=== PATIENT | female | born 1950 | race African-American/Black ===

== ENCOUNTER 2021-03-08 08:24 | Outpatient (REF) | payer MEDICARE, SELFPAY ==
--- NOTE | ~2021-03-08 | XR_ITS ---
EXAMINATION: XR KNEE, RIGHT XR KNEE, LEFT XR KNEE STANDING, BILATERAL CLINICAL INFORMATION: Right knee COMPARISON: Right and left knee radiographs from 03/24/2019 TECHNIQUE: 3 views of each knee FINDINGS: RIGHT: No acute visible fracture or dislocation. Moderate multicompartment degenerative changes. Moderate to severe narrowing of the medial femorotibial compartments and moderate to severe narrowing of the lateral patellofemoral compartment. Spurring of the tibial spines. Periarticular osteophytes along the tibial plateau, distal femoral condyles, and superior inferior margin of the patella. Enthesopathy at the quadriceps insertion site. Joint spaces and alignment are otherwise maintained. Trace joint effusion. Soft tissues are unremarkable. LEFT: No acute visible fracture or dislocation. Moderate multicompartment degenerative changes. Moderate to severe narrowing of the medial femorotibial compartments and mild to moderate narrowing of the medial patellofemoral compartment. Periarticular osteophytes along the tibial plateau, femoral condyles, and superior and inferior margins of the patella. Very slight enthesopathy at the quadriceps insertion site. Joint spaces and alignment are otherwise maintained. Joint effusion. Soft tissues are unremarkable. XR/XR knee RT 2V IMPRESSION: 1. No acute visible fracture or dislocation. 2. Moderate bilateral multicompartment degenerative changes.
--- NOTE | ~2021-03-08 | XR_ITS ---
EXAMINATION: XR KNEE, RIGHT XR KNEE, LEFT XR KNEE STANDING, BILATERAL CLINICAL INFORMATION: Right knee COMPARISON: Right and left knee radiographs from 03/24/2019 TECHNIQUE: 3 views of each knee FINDINGS: RIGHT: No acute visible fracture or dislocation. Moderate multicompartment degenerative changes. Moderate to severe narrowing of the medial femorotibial compartments and moderate to severe narrowing of the lateral patellofemoral compartment. Spurring of the tibial spines. Periarticular osteophytes along the tibial plateau, distal femoral condyles, and superior inferior margin of the patella. Enthesopathy at the quadriceps insertion site. Joint spaces and alignment are otherwise maintained. Trace joint effusion. Soft tissues are unremarkable. LEFT: No acute visible fracture or dislocation. Moderate multicompartment degenerative changes. Moderate to severe narrowing of the medial femorotibial compartments and mild to moderate narrowing of the medial patellofemoral compartment. Periarticular osteophytes along the tibial plateau, femoral condyles, and superior and inferior margins of the patella. Very slight enthesopathy at the quadriceps insertion site. Joint spaces and alignment are otherwise maintained. Joint effusion. Soft tissues are unremarkable. XR/XR knee LT 2V IMPRESSION: 1. No acute visible fracture or dislocation. 2. Moderate bilateral multicompartment degenerative changes.
--- NOTE | ~2021-03-08 | XR_ITS ---
EXAMINATION: XR KNEE, RIGHT XR KNEE, LEFT XR KNEE STANDING, BILATERAL CLINICAL INFORMATION: Right knee COMPARISON: Right and left knee radiographs from 03/24/2019 TECHNIQUE: 3 views of each knee FINDINGS: RIGHT: No acute visible fracture or dislocation. Moderate multicompartment degenerative changes. Moderate to severe narrowing of the medial femorotibial compartments and moderate to severe narrowing of the lateral patellofemoral compartment. Spurring of the tibial spines. Periarticular osteophytes along the tibial plateau, distal femoral condyles, and superior inferior margin of the patella. Enthesopathy at the quadriceps insertion site. Joint spaces and alignment are otherwise maintained. Trace joint effusion. Soft tissues are unremarkable. LEFT: No acute visible fracture or dislocation. Moderate multicompartment degenerative changes. Moderate to severe narrowing of the medial femorotibial compartments and mild to moderate narrowing of the medial patellofemoral compartment. Periarticular osteophytes along the tibial plateau, femoral condyles, and superior and inferior margins of the patella. Very slight enthesopathy at the quadriceps insertion site. Joint spaces and alignment are otherwise maintained. Joint effusion. Soft tissues are unremarkable. XR/XR knee standing BI IMPRESSION: 1. No acute visible fracture or dislocation. 2. Moderate bilateral multicompartment degenerative changes.
== END 2021-03-08 08:25 | disposition home or self-care (01) ==
LOC: HO.HOSX 08:24
PROVIDERS: Visit Provider Orthopaedic Surgery
DX: M25.561 Pain in right knee (principal); M25.562 Pain in left knee; M17.0 Bilateral primary osteoarthritis of knee; I82.90 Acute embolism and thrombosis of unspecified vein; E11.9 Type 2 diabetes mellitus without complications; E78.00 Pure hypercholesterolemia, unspecified; I10 Essential (primary) hypertension; Z88.1 Allergy status to other antibiotic agents
CPT/HCPCS: 20610; 73560; 73565; 99202; J1040

== ENCOUNTER → 2021-03-29 11:50 | Outpatient (BNVA) | payer MEDICARE, SELFPAY | PROVIDERS: Visit Provider Orthopaedic Surgery | DX: M17.0 Bilateral primary osteoarthritis of knee (principal) | CPT/HCPCS: 20610; 99212; J1040 ==

== ENCOUNTER 2021-07-14 12:33 | Outpatient (REF) | payer MEDICARE, SELFPAY ==
--- NOTE | 2021-07-14 | PFT_ITS ---
INDICATION: Shortness of breath. SPIROMETRY: The FEV1 to FVC 94% with an FEV1 of 1.6 L, which is 100% predicted, and an FVC of 1.7 L, which is 82% predicted. No significant response to bronchodilators noted. Maximum voluntary ventilation 68% predicted. LUNG VOLUMES: Total lung capacity 88% predicted with expiratory reserve volume of 23% predicted. DIFFUSION CAPACITY: The patient was not able to perform the maneuver despite multiple times. COMPARISONS: None. INTERPRETATION: No obstructive nor restrictive ventilatory defects identified. No significant response to bronchodilators noted. The patient does have a mild decrease in maximum voluntary ventilation secondary to likely deconditioning. Lung volumes do also demonstrate a decrease in the expiratory reserve volume secondary to an elevated BMI. Again, diffusion capacity could not be tested. Clinical correlation warranted. Moisés Lawrence MD MR/MODL / [id number]
== END 2021-07-14 12:34 | disposition home or self-care (01) ==
LOC: HO.RESP 12:33
PROVIDERS: PCP Internal Medicine; Visit Provider Internal Medicine
DX: R06.02 Shortness of breath (principal)
CPT/HCPCS: 94060; 94727

== ENCOUNTER → 2021-07-27 12:44 | Outpatient (BNVA) | payer MEDICARE, SELFPAY | PROVIDERS: PCP Internal Medicine; Visit Provider Internal Medicine | DX: R06.00 Dyspnea, unspecified (principal); E66.01 Morbid (severe) obesity due to excess calories; Z68.43 Body mass index [BMI] 50.0-59.9, adult; Z87.891 Personal history of nicotine dependence; Z79.899 Other long term (current) drug therapy; Z71.3 Dietary counseling and surveillance | CPT/HCPCS: 99202 ==

== ENCOUNTER → 2021-08-16 10:14 | Outpatient (BNVA) | payer MEDICARE, SELFPAY | PROVIDERS: PCP Internal Medicine; Visit Provider Surgery Vascular Surgery | DX: I83.11 Varicose veins of right lower extremity with inflammation (principal); E66.01 Morbid (severe) obesity due to excess calories; Z68.43 Body mass index [BMI] 50.0-59.9, adult | CPT/HCPCS: 99202 ==

== ENCOUNTER 2021-09-06 10:13 | Outpatient (REF) | payer MEDICARE, SELFPAY ==
--- NOTE | ~2021-09-06 | US_ITS ---
EXAMINATION: US LOWER EXTREMITY VENOUS (REFLUX EXAM), BILATERAL CLINICAL INDICATION: This is a 70-year-old female with venous insufficiency and varicose veins. COMPARISON: None. TECHNIQUE: Color flow triplex imaging and compression Doppler was performed to evaluate both the deep and the superficial systems bilaterally. To evaluate the superficial system, the examination was performed in the upright position. Color-flow Doppler ultrasound and compression ultrasound were utilized. In addition, maneuvers were utilized to demonstrate reflux. FINDINGS: 1. DEEP VENOUS ULTRASOUND OF THE RIGHT LOWER EXTREMITY: Common Femoral Vein: Compressible, normal respiratory variation and augmented flow. Femoral vein: Compressible, normal color flow and augmentation. Popliteal Vein: There is reflux in the popliteal vein with the reflux time 1544 ms. Deep Reflux: There is no evidence of reflux in the deep system in either the common femoral vein or the popliteal vein. There is a 3.3 x 1.0 x 1.9 cm popliteal fossa Irver's cyst. 2. SUPERFICIAL ULTRASOUND WITH DOPPLER OF RIGHT LOWER EXTREMITY: GREAT SAPHENOUS VEIN: Saphenofemoral Junction: 0.9 cm. There is no reflux. Mid Thigh: 0.6 cm. The reflux time is 584 ms. Above Knee: 0.4 cm. There is no reflux at this level and below. Below Knee: 0.4 cm Mid Calf: 0.3 cm Ankle: 0.3 cm GSV REFLUX: There is isolated reflux in the mid thigh but not at the saphenofemoral junction. DUPLICATED GREAT SAPHENOUS VEIN: None SMALL SAPHENOUS VEIN: Proximal: 0.3 cm Distal: 0.2 cm SSV REFLUX: No evidence of reflux. VEIN OF GIACOMINI: None Imaged. PERFORATORS: There is a 0.3 distal thigh office analyst without reflux. VARICOSITIES: There are 0.3 cm proximal thigh and proximal calf, respectively, varicose veins without reflux. 3. DEEP VENOUS ULTRASOUND OF THE LEFT LOWER EXTREMITY: Common Femoral Vein: Compressible, normal respiratory variation and augmented flow. Femoral Vein: Compressible, normal color flow and augmentation. Popliteal Vein: Compressible, normal augmentation. Deep Reflux: There is no evidence of reflux in the deep system in either the common femoral vein or the popliteal vein. There is no evidence of a River's cyst. 4. SUPERFICIAL ULTRASOUND WITH DOPPLER OF LEFT LOWER EXTREMITY: GREAT SAPHENOUS VEIN: Saphenofemoral Junction: 1.0 cm. There is no reflux. Mid Thigh: 0.8 cm. There is no reflux. Above Knee: 0.6 cm. There is no reflux Below Knee: 0.5 cm. The reflux time is 1064 ms. Mid Calf: 0.2 cm. There is no reflux at this level and below. Ankle: 0.2 cm GSV REFLUX: There is isolated reflux at the knee and below the knee but not in the mid calf and below. DUPLICATED GREAT SAPHENOUS VEIN: None SMALL SAPHENOUS VEIN: Proximal: 0.1 cm. There is no reflux. Distal: 0.3 cm SSV REFLUX: There is isolated reflux in the mid calf with reflux time of 508 ms. There is no reflux at the junction. VEIN OF GIACOMINI: None Imaged. PERFORATORS: There is a 0.4 cm proximal calf office analyst with the reflux time of 2760 ms. VARICOSITIES: There is a 0.5 cm proximal calf varicose vein with reflux time is 2436 ms. US/US venous duplex LE BI IMPRESSION: 1. There are bilateral patent great saphenous veins and small saphenous veins, respectively, without evidence of reflux at the junction. There are bilateral isolated areas of reflux as noted above. 2. There are bilateral varicose veins. Only the proximal left calf varicose veins have reflux as noted.
== END 2021-09-06 10:14 | disposition home or self-care (01) ==
LOC: HO.US 10:13
PROVIDERS: PCP Internal Medicine; Visit Provider Surgery Vascular Surgery
DX: I83.11 Varicose veins of right lower extremity with inflammation (principal)
CPT/HCPCS: 93970

== ENCOUNTER → 2021-09-19 11:22 | Outpatient (BNVA) | payer MEDICARE, SELFPAY | PROVIDERS: PCP Internal Medicine; Visit Provider Surgery Vascular Surgery | DX: I83.11 Varicose veins of right lower extremity with inflammation (principal) | CPT/HCPCS: 99212 ==

== ENCOUNTER 2022-01-19 08:15 | Outpatient (REF) | payer MEDICARE, SELFPAY ==
--- NOTE | 2022-01-19 08:19 | EMG_ITS ---
Left median and ulnar motor and sensory studies were performed. Left radial sensory study was performed and paraspinal muscles were tested. IMPRESSION: 1. 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 2. [id number] left ulnar neuropathy across elbow. 3. Underlying axonal peripheral neuropathy. MD ADDIE Prcie/EMILY / [id number]
== END 2022-01-19 08:16 | disposition home or self-care (01) ==
LOC: HO.NEURO 08:15
PROVIDERS: PCP Internal Medicine; Visit Provider Internal Medicine
DX: G56.02 Carpal tunnel syndrome, left upper limb (principal)
CPT/HCPCS: 95886; 95909

== ENCOUNTER → 2022-03-15 12:50 | Outpatient (BNVA) | payer MEDICARE, SELFPAY | PROVIDERS: PCP Internal Medicine; Visit Provider Orthopaedic Surgery | DX: G56.02 Carpal tunnel syndrome, left upper limb (principal); G56.22 Lesion of ulnar nerve, left upper limb | CPT/HCPCS: 99202 ==

== ENCOUNTER 2024-02-05 10:43 | Outpatient (REF) | payer MEDICARE, SELFPAY ==
[2024-02-05 14:24] LABS: Alanine Aminotransferase 19 U/L (0-31); Albumin Level 4.2 g/dL (3.5-5.0); Alkaline Phosphatase 72 U/L (39-117); Anion Gap 15 (12-20); Aspartate Amino Transferase 24 U/L (5-31); Bilirubin Total 0.4 mg/dL (0.0-1.0); Blood Urea Nitrogen 12 mg/dL (9-16); Carbon Dioxide 23 mmol/L (22-29); Chloride 108 mmol/L (96-108); Cholesterol 128 mg/dL (<200); Estimated Glomerular Filt Rate 43; Glucose Random 117 mg/dL (60-115); HDL Cholesterol 49 mg/dL (>40); LDL Cholesterol Calculated 55 mg/dL (<100); Potassium 3.7 mmol/L (3.3-5.1); Sodium 142 mmol/L (135-145); Total Protein 7.3 g/dL (6.5-8.0); Triglycerides 122 mg/dL (<150)
== END 2024-02-05 10:44 | disposition home or self-care (01) ==
LOC: HO.CHCLDS 10:43
PROVIDERS: Visit Provider Internal Medicine
DX: E11.9 Type 2 diabetes mellitus without complications (principal)
CPT/HCPCS: 36415; 80053; 80061

== ENCOUNTER 2024-06-06 11:12 | Outpatient (REF) | payer MEDICARE, SELFPAY ==
[2024-06-06 15:09] LABS: Estimated Average Glucose 154 mg/dL
[2024-06-06 15:52] LABS: Creatinine Urine 100.85 mg/dL; Microalbum/Creatinine Ratio Ur 29.7 ug/mg cr (<30)
== END 2024-06-06 11:13 | disposition home or self-care (01) ==
LOC: HO.CHCLDS 11:12
PROVIDERS: Visit Provider Internal Medicine
DX: E11.9 Type 2 diabetes mellitus without complications (principal)
CPT/HCPCS: 36415; 82043; 82570; 83036